=== PATIENT | female | born 1985 | race Two or more races ===

== ENCOUNTER → 2020-10-13 | Outpatient (CLI) | payer MEDICAID ==
[~2020-10-13] MED LIST: IBUP-2030 PO
== END | disposition home or self-care (01) ==
LOC: LAB 10:27
PROVIDERS: ATTEND Obstetrics & Gynecology
DX: Z20.822 Contact with and (suspected) exposure to COVID-19 (principal)
CPT/HCPCS: 87426

== ENCOUNTER 2020-10-15 09:00 | Inpatient (IN) | payer MEDICAID, OTHER ==
[~2020-10-15] VITALS: Ht 152.4 cm; Wt 88.0 kg
[2020-10-15] MEDS ORDERED: CARBOPROST TROMETHAMINE 250 MCG/ML AMPUL IM PRN (10:00)
[2020-10-15] MEDS ORDERED: METHYLERGONOVINE MALEATE 0.2 MG/ML IM PRN (10:00)
[2020-10-15] MEDS: LACTATED RINGERS 1,000 ML IV SCH ×2 (10:03→13:15)
[2020-10-15] MEDS ORDERED: CITRIC ACID/SODIUM CITRATE SOLN 30ML UDC PO NR (10:30)
[2020-10-15 10:50] LABS: BASOPHILS % 0.2 % (0.0-2.0); EOSINOPHILS % 0.2 % (0.0-5.0); HEMATOCRIT. 36.2 % (36.0-48.0); HEMOGLOBIN. 12.5 g/dL (12.0-16.0); LYMPHOCYTES % 26.4 % (20.0-50.0); MEAN CORPUSCULAR HEMOGLOBIN 30.6 pg (28.0-32.0); MEAN CORPUSCULAR VOLUME 88.7 fL (81.0-99.0); MEAN PLATELET VOLUME 11.5 fl (7.4-10.4); MONOCYTES % 7.9 % (2.0-8.0); NEUTROPHILS % 65.3 % (40.0-76.0); PLATELET 117 x1000/uL (130-400); RED BLOOD CELL COUNT 4.08 mill/uL (4.2-5.4); RED CELL DISTRIBUTION WIDTH 13.5 % (11.6-14.6)
[2020-10-15 10:57] LABS: *AMPHETAMINES SCREEN URINE NEGATIVE (NEGATIVE); *BARBITURATES SCREEN URINE NEGATIVE (NEGATIVE); *BENZODIAZEPINES SCREEN URINE NEGATIVE (NEGATIVE); *COCAINE SCREEN URINE NEGATIVE (NEGATIVE)
[2020-10-15 10:59] LABS: CANNABINOID URINE SCREEN NEGATIVE (NEGATIVE); METHADONE URINE SCREEN NEGATIVE (NEGATIVE); OPIATES URINE SCREEN NEGATIVE (NEGATIVE); PHENCYCLIDINE URINE SCREEN NEGATIVE (NEGATIVE)
[2020-10-15 11:00] LABS: PARTIAL THROMBOPLASTIN TIME 24.3 sec (23.4-31.0); PROTHROMBIN TIME 10.3 sec (9.6-11.0)
[2020-10-15 11:40] LABS: HEPATITIS B SURFACE ANTIGEN NEGATIVE
[2020-10-15] MEDS ORDERED: EPHEDRINE SULFATE 50MG/ML VIAL ONE (12:13)
[2020-10-15] MEDS ORDERED: ONDANSETRON HCL 4MG/2ML INJ ONE ×2 (12:13→12:50)
[2020-10-15] MEDS ORDERED: OXYTOCIN 10 UNITS/ML 1ML ONE (12:13)
[2020-10-15] MEDS ORDERED: FENTANYL CITRATE/PF 50MCG/ML 2ML VIAL ONE (12:13)
[2020-10-15] MEDS ORDERED: CEFAZOLIN SODIUM 1000MG/VIAL ONE (12:13)
[2020-10-15] MEDS ORDERED: MORPHINE SULFATE/PF 1MG/ML 10ML AMP ONE (15:16)
[2020-10-15] MEDS ORDERED: SODIUM CHLORIDE 0.9% 10ML VIAL ONE (15:20)
[2020-10-15] MEDS ORDERED: LANOLIN OINT 7GM TUBE TOP PRN (16:00)
[2020-10-15] MEDS ORDERED: IBUPROFEN 400MG TABLET PO PRN (16:00)
[2020-10-15] MEDS ORDERED: ONDANSETRON HCL 4MG/2ML INJ IV PRN (16:00)
[2020-10-15] MEDS ORDERED: DIPHENHYDRAMINE 25MG CAPSULE PO PRN (16:00)
[2020-10-15] MEDS ORDERED: BISACODYL 10MG SUPP PR PRN (16:00)
[2020-10-15] MEDS ORDERED: KETOROLAC 60MG/2ML VIAL IM ONE (16:24)
[2020-10-15] MEDS ORDERED: DIPHENHYDRAMINE 50MG/ML VIAL ONE (16:24)
[2020-10-15] MEDS ORDERED: NALOXONE HCL 0.4 MG/ML 1ML VIAL IV PRN (16:45)
[2020-10-15] MEDS ORDERED: DIPHENHYDRAMINE 50MG/ML VIAL IV PRN (16:45)
[2020-10-15] MEDS ORDERED: KETOROLAC 30MG/ML VIAL IM SCH (17:00)
[2020-10-15] MEDS ORDERED: NALOXONE HCL 0.4MG/ML VIAL IV PRN (17:00)
[2020-10-15] MEDS: BUTORPHANOL TARTRATE 2 MG/ML VIAL IV PRN ×2 (17:56→22:16)
[2020-10-15] MEDS: DEXT 5%/LR + PITOCIN 20UNITS/L 1,000 ML IV SCH (18:11)
[2020-10-15 20:30] VITALS: BP 127/85
[2020-10-15 22:45] VITALS: BP 115/97
[2020-10-16] MEDS: DEXT 5%/LR + PITOCIN 20UNITS/L 1,000 ML IV SCH (02:45)
[2020-10-16 05:00] VITALS: BP 125/85
[2020-10-16 07:41] VITALS: BP 111/65
[2020-10-16] MEDS: PRENATAL VIT/FE FUMARATE/FA TABLET PO SCH (08:58)
[2020-10-16] MEDS: FERROUS SULFATE 325MG TABLET PO SCH ×3 (08:59→18:04)
[2020-10-16] MEDS: SIMETHICONE 80MG TABLET CHEW PO SCH ×4 (08:59→21:43)
[2020-10-16] MEDS: IBUPROFEN 800MG TABLET PO PRN ×2 (10:01→21:44)
[2020-10-16 10:48] LABS: BASOPHILS % 0.1 % (0.0-2.0); EOSINOPHILS % 0.3 % (0.0-5.0); HEMATOCRIT. 26.6 % (36.0-48.0); HEMOGLOBIN. 9.2 g/dL (12.0-16.0); LYMPHOCYTES % 17.6 % (20.0-50.0); MEAN CORPUSCULAR HEMOGLOBIN 31.3 pg (28.0-32.0); MEAN CORPUSCULAR VOLUME 90.3 fL (81.0-99.0); MEAN PLATELET VOLUME 10.6 fl (7.4-10.4); MONOCYTES % 8.7 % (2.0-8.0); NEUTROPHILS % 73.3 % (40.0-76.0); RED BLOOD CELL COUNT 2.95 mill/uL (4.2-5.4); RED CELL DISTRIBUTION WIDTH 13.8 % (11.6-14.6)
[2020-10-16 10:50] LABS: PLATELET 105 x1000/uL (130-400)
[2020-10-16 16:10] VITALS: BP 111/69
[2020-10-16] MEDS: HYDROCODONE/ACETAMINOPHEN 5/325MG TABLET PO PRN (18:04)
[2020-10-16 20:00] VITALS: BP 116/81
[2020-10-17] MEDS: HYDROCODONE/ACETAMINOPHEN 5/325MG TABLET PO PRN ×2 (00:35→17:04)
[2020-10-17 04:00] VITALS: BP 109/70
[2020-10-17] MEDS: IBUPROFEN 800MG TABLET PO PRN ×3 (06:44→19:57)
[2020-10-17 08:00] VITALS: BP 106/70
[2020-10-17] MEDS: SIMETHICONE 80MG TABLET CHEW PO SCH ×4 (08:36→19:58)
[2020-10-17] MEDS: FERROUS SULFATE 325MG TABLET PO SCH ×3 (08:36→17:04)
[2020-10-17] MEDS: PRENATAL VIT/FE FUMARATE/FA TABLET PO SCH (08:36)
[2020-10-17] MEDS ORDERED: NALOXONE HCL 0.4MG/ML VIAL IV PRN (09:15)
[2020-10-17] MEDS: DOCUSATE SODIUM 100MG CAPSULE PO SCH ×2 (09:56→17:04)
[2020-10-17 15:58] VITALS: BP 109/75
[2020-10-17 20:00] VITALS: BP 120/81
[2020-10-18 00:01] VITALS: BP 107/72
[2020-10-18] MEDS: HYDROCODONE/ACETAMINOPHEN 5/325MG TABLET PO PRN (00:35)
[2020-10-18 04:00] VITALS: BP 105/62
[2020-10-18] MEDS: IBUPROFEN 800MG TABLET PO PRN (04:07)
[2020-10-18] MEDS ORDERED: IBUP-2030 PO (06:07)
[2020-10-18 08:33] VITALS: BP 110/70
== END 2020-10-18 13:00 | disposition home or self-care (01) | DRG 540 ==
LOC: 8 EST LDRP 09:00 → 8EST 20:10
PROVIDERS: ADMIT Obstetrics & Gynecology; ATTEND Obstetrics & Gynecology
PROC: 10D00Z1 Extraction of Products of Conception, Low, Open Approach (ICD-10-PCS; principal; 2020-10-17)
DX: O30.003 Twin pregnancy, unspecified number of placenta and unspecified number of amniotic sacs, third trimester (principal); Z37.2 Twins, both liveborn; O16.4 Unspecified maternal hypertension, complicating childbirth; O34.211 Maternal care for low transverse scar from previous cesarean delivery; Z20.822 Contact with and (suspected) exposure to COVID-19; O99.03 Anemia complicating the puerperium; Z3A.38 38 weeks gestation of pregnancy
CPT/HCPCS: 36415; 80305; 85025; 86592; 86703; 86762; 86850; 86900; 87340; 88307; J0595; J0690; J1200; J1885; J2210; J2274; J2405; J2590; J3010; J3490; J7120; A4315